=== PATIENT | male | born 1975 | race Caucasian/White ===

== ENCOUNTER 2020-02-29 07:50 | Emergency (ER) | payer MEDICARE, SELFPAY ==
--- NOTE | ~2020-02-29 | XR_ITS ---
EXAMINATION: XR tibia fibula RT 2V DATE: 02/29/2020 08:47 INDICATION: Pain and wound at the posterior right lower leg. TECHNIQUE: Anteroposterior and lateral views of the right tibia and fibula were obtained. COMPARISON: None. FINDINGS: Alignment is normal. No fracture. Joint spaces are normal. Diffuse osteopenia. No cortical erosions o r periosteal reaction. Extensive scattered vascular calcifications. Soft tissue swelling about the an kle accentuated by a sock impression. IMPRESSION: 1. No acute osseous abnormality. Reviewed, dictated and finalized at location A.
--- NOTE | ~2020-02-29 | US_ITS ---
EXAMINATION: US venous doppler LE RT EXAM DATE: 02/29/2020 10:05 INDICATION: Worsening right leg pain, from knee down. TECHNIQUE: Multiple grayscale, color flow and Doppler images of the right lower extremity deep venous system were obtained and reviewed. There is no prior study for comparison. FINDINGS: The right common femoral, femoral and profunda veins demonstrate normal color flow, respira tory variation, augmentation and compressibility. Compressibility, color flow confirmed within the r ight popliteal, posterior tibial, peroneal, and greater saphenous veins. IMPRESSION: 1. No right lower extremity deep venous thrombosis. Reviewed, dictated and finalized at location B.
--- NOTE | ~2020-02-29 | XR_ITS ---
EXAMINATION: XR chest 2V EXAM DATE: 02/29/2020 08:47 INDICATION: Cough. TECHNIQUE: Frontal and lateral projections of the chest obtained and reviewed. Comparison is made to prior examination from 06/19/2018. FINDINGS: No interval change in the chronic fibrotic appearance to the right lung with pleural calci fications, pleural gas pockets, compared to 2018. Also large amount of right lung opacity is unchange d. No evidence of superimposed acute airspace disease, left lung is clear. The cardiac silhouette is enlarged. Left axillary surgical clips. There are mild bony degenerative changes. There is no signifi cant interval change. IMPRESSION: 1. Chronic right-sided pleural, lung findings. 2. Cardiomegaly. Reviewed, dictated and finalized at location B.
--- NOTE | 2020-02-29 08:13 | ED.EXTPRO ---
HPI - Extremity Problem General Chief complaint: Extremity Problem,Nontraumatic Stated complaint: leg pain Time Seen by Provider: 02/29/20 08:13 Source: patient Mode of arrival: ambulatory Limitations: no limitations History of Present Illness HPI Narrative: 44-year-old man on renal dialysis for end-stage renal disease comes in today complaining of increased right leg pain over the last few days at the wound site that he has had for several months. Patient states that in October she was admitted to [facility] for an abscess on his right chest wall which grew Pseudomonas. One of the medications and he was treated with caused reaction and necrosis of posterior aspect of his right lower leg. 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 He states he has had vomiting but he has had no fever, diarrhea, difficulty breathing, chest pain or abdominal pain. He had dialysis yesterday (e, Etta, Sat) MD Complaint: extremity pain Onset (ago): week(s) (1) Pain Consistency: constant Location: right and lower extremity Quality: aching and sharp Radiation: none Relieving factors: nothing Exacerbating factors: weight bearing Associated symptoms: denies other symptoms Related Data Home Medications Medication Instructions Recorded Confirmed alprazolam 1 mg PO PRN PRN 02/29/20 02/29/20 hydrocodone-acetaminophen 1 tablet PO PRN PRN 02/29/20 02/29/20 metoprolol succinate 50 mg PO DAILY 02/29/20 02/29/20 mupirocin 1 applic TOPICAL TID 02/29/20 02/29/20 pregabalin 50 mg PO HS 02/29/20 02/29/20 triamcinolone acetonide 1 applic TOPICAL DAILY 02/29/20 02/29/20 warfarin 2 mg PO DAILY 02/29/20 02/29/20 warfarin 5 mg PO DAILY 02/29/20 02/29/20 Allergies Allergy/AdvReac Type Severity Reaction Status Date / Time clindamycin Allergy Unknown Verified 02/29/20 09:21 gabapentin [From Neurontin] Allergy Unknown Verified 02/29/20 09:21 Review of Systems Constitutional: Constitutional: Denies chills, Denies fever(s) and Denies weakness Eyes: Eyes: Denies change in vision and Denies photophobia ENT: Denies dysphagia, Denies nasal congestion and Denies sore throat Cardiovascular: Cardiovascular: Denies chest pain and Denies radiating jaw, neck or arm pain Respiratory: Respiratory: Denies cough, Denies dyspnea and Denies wheezing Gastrointestinal: Gastrointestinal: Denies abdominal pain, Denies diarrhea, Reports nausea and Reports vomiting Musculoskeletal: Musculoskeletal: Denies back pain, Denies arthralgias and Denies joint swelling Integumentary/Breasts: Skin/Breast: Reports as per HPI Neurologic: Denies vertigo, Denies dizziness and Denies syncope Psychiatric: Psychiatric: Reports anxiety and Denies depression Endocrine: Endocrine: Denies polydipsia and Denies polyuria Hematologic/Lymphatic: Hematologic/Lymphatic: Denies easy bleeding and Denies easy bruising Allergic/Immunologic: Allergic/Immunologic: Denies lip swelling and Denies wheezing [facility] Past Medical History Medical History (Updated 02/29/20 @ 13:16 by Demarco Awan MD) Atrial flutter Chronic anemia End stage renal failure on dialysis GERD (gastroesophageal reflux disease) Hemodialysis access, AV graft HTN (hypertension) Pneumothorax Sleep apnea Systolic heart failure Surgical History Surgical History (Updated 02/29/20 @ 10:01 by Demarco Awan MD) H/O hernia repair H/O vasectomy History of thoracentesis S/P thoracotomy Social History Social History Smoking status: Never smoker Alcohol intake: never Substance use: never Exam Const: General: alert and ill appearing chronically Nutritional Appearance: thin Orientation/consciousness: patient oriented x3 Other: Moderate acute distress HENMT: Mouth: Yes moist mucous membranes Throat: posterior oropharynx normal Eyes: Conjunctivae: conjunctivae normal Pupils: Equal, round and reactive pupils pr
[2020-02-29 08:15] VITALS: BP 126/86; PULSE 70; RESP 18; TEMP 36.4; O2SAT 100
[2020-02-29] MEDS: HYDROmorphone HCL 2 MG/ML VIAL 0.5 MG IV PUSH ×2 (09:04→09:45)
[2020-02-29] MEDS: ONDANSETRON INJ 4 MG/2 ML VIAL IV PUSH (09:05)
[2020-02-29 09:17] LABS: Basophils Absolute Auto 0.04 K/mm3 (0.00-0.10); Basophils Percent Auto 0.7 % (0.0-1.0); Eosinophils Absolute Auto 0.07 K/mm3 (0.02-0.50); Eosinophils Percent Auto 1.3 % (1.0-6.0); Hematocrit 41.1 % (40.0-54.0); Hemoglobin 13.8 g/dL (14.0-18.0); Immature Granulocyte Absolute 0.01 K/mm3 (0.00-0.00); Immature Granulocyte Percent A 0.2 % (0.0-0.0); Lymphocytes Absolute Auto 1.69 K/mm3 (1.10-4.50); Lymphocytes Percent Auto 30.5 % (18.0-42.0); Mean Corpuscular HGB Conc 33.6 g/dL (32.0-36.0); Mean Corpuscular Hemoglobin 38.1 pg (27.0-31.0); Mean Corpuscular Volume 113.5 fL (78.0-102.0); Mean Platelet Volume 12.1 fl (8.7-11.0); Monocytes Absolute Auto 0.29 K/mm3 (0.10-0.90); Monocytes Percent Auto 5.2 % (2.0-11.0); Neutrophils Absolute Auto 3.5 K/mm3 (1.7-7.2); Neutrophils Percent Auto 62.1 % (50.0-70.0); Platelet Count Result 83 K/mm3 (150-420); Red Blood Count 3.62 M/mm3 (4.70-6.10); Red Cell Distribution Width 17.2 % (11.6-14.4); White Blood Count 5.6 K/mm3 (4.8-10.8)
[2020-02-29 09:29] LABS: INR 1.4; Partial Thromboplastin Time 35.1 SEC (22.3-31.6); Prothrombin Time 14.6 Seconds (9.64-11.0)
[2020-02-29 09:34] LABS: Alanine Aminotransferase 11 U/L (16-63); Albumin Level 3.2 g/dL (3.4-5.0); Alkaline Phosphatase 175 U/L (46-116); Aspartate Amino Transferase 19 U/L (15-37); Bilirubin,Total 1.6 mg/dL (0.00-1.00); Blood Urea Nitrogen 27 mg/dL (7-18); CRP 3.8 mg/dL (0.0-0.9); Calcium 9.4 mg/dL (8.5-10.1); Carbon Dioxide 25 mmol/L (21-32); Chloride 96 mmol/L (98-108); Estimated CRCL calculation 14 ml/min; Estimated Glomerular Filt Rate 9; Glucose 89 mg/dL (70-99); Osmolality Calculated 294 mOsm/kg (285-295); Sodium 140 mmol/L (136-145)
[2020-02-29 09:36] LABS: Lactic Acid Reflex 0.9 mmol/L (0.4-2.0)
--- NOTE | 2020-02-29 11:10 | PC.NURSE ---
Pt. resting c at bedside at this time. Awaiting call back from [facility] for transfer. ERP spoke to Dr. Navarro, accepting for transfer. Report given to Carlyn Neal
--- NOTE | 2020-02-29 11:30 | PC.NURSE ---
PT FOUND TO BE DROWSY WITH LOW SP02 88% - NASAL CANNULA APPLIED - SPO2 96%
[2020-02-29 11:48] VITALS: BP 115/84; PULSE 67; O2SAT 98
--- NOTE | 2020-02-29 11:50 | PC.NURSE ---
ERP SPEAKING WITH [facility] CONCERNING POSSIBLE TRANSFER.
--- NOTE | 2020-02-29 12:01 | PC.NURSE ---
ERP CALLING DR ESTEVEZ, NEPHROLOGY FOR POSSIBLE TRANSFER
[2020-02-29 13:28] VITALS: BP 131/89; PULSE 70; O2SAT 94
== END 2020-02-29 13:30 | disposition home or self-care (01) ==
PROVIDERS: Emergency Provider Emergency Medicine; PCP Family Medicine
DX: S81.801A Unspecified open wound, right lower leg, initial encounter (principal); I12.0 Hypertensive chronic kidney disease with stage 5 chronic kidney disease or end stage renal disease; N18.6 End stage renal disease; Z99.2 Dependence on renal dialysis
CPT/HCPCS: 36415; 71046; 73590; 80053; 83605; 85025; 85610; 85730; 86140; 87040; 93971; 96374; 96375; 96376; 99284; J1170; J2405